=== PATIENT | female | born 1940 | race Caucasian/White ===

== ENCOUNTER 2018-03-03 10:14 | Emergency (ER) | payer MEDICARE ==
[~2018-03-03] VITALS: Ht 170.2 cm; Wt 113.1 kg
[~2018-03-03 10:14] MED LIST: BESIVANCE5 ML; COZAAR100 MG PO; DUREZOL5 ML; ELMIRON100 MG PO; IMITREX20 MG; INDERAL LA80 MG PO; LEVOCETIRIZINE D5 MG PO; OMEPRAZOLE20 MG PO; PROPRANOLOL HCL40 MG PO; SUMATRIPTAN SUC50 MG PO; ULTRAM 50MG50 MG PO; URIBEL CAPSULE1 EACH
[2018-03-03] MEDS ORDERED: AMITRIPTYLINE H25 MG PO (10:47)
[2018-03-03] MEDS ORDERED: CLONIDINE HCL 0.1 MG TAB PO ONE ×2 (11:00→12:30)
--- NOTE | 2018-03-03 11:30 | Diagnostic Imaging Report ---
Fingers Indication: Fall with bruising the third and fourth digits Technique: Three views of the third and fourth digits obtained Comparison: None Findings: There is no evidence of fracture or dislocation. There is mild proximal and distal IP joint narrowing of the third and fourth digits. No significant osteophytosis. No erosive changes. There are degenerative changes of the CMC joint of the first digit. No radio-opaque foreign bodies in the soft tissues. No focal osseous lesions. IMPRESSION: No acute traumatic pathology. Degenerative changes as described above. Signed by: Dr. Kathi Garcias MD on 03/03/2018 11:27 AM
[2018-03-03] MEDS ORDERED: VICTOZA 3-0.6 MG/0.1 SC (12:48)
[2018-03-03 13:23] VITALS: BP 168/87
== END 2018-03-03 13:32 | disposition home or self-care (01) ==
LOC: FSED 10:14
DX: S63.653A Sprain of metacarpophalangeal joint of left middle finger, initial encounter (principal); S63.655A Sprain of metacarpophalangeal joint of left ring finger, initial encounter; W01.0XXA Fall on same level from slipping, tripping and stumbling without subsequent striking against object, initial encounter; Y92.008 Other place in unspecified non-institutional (private) residence as the place of occurrence of the external cause; I10 Essential (primary) hypertension; E11.9 Type 2 diabetes mellitus without complications; K21.9 Gastro-esophageal reflux disease without esophagitis
CPT/HCPCS: 99283

== ENCOUNTER → 2018-04-28 | Outpatient (CLI) | payer MEDICARE ==
[~2018-04-28] MED LIST changes: +AMITRIPTYLINE H25 MG PO; +VICTOZA 3-0.6 MG/0.1 SC
--- NOTE | 2018-04-30 09:55 | Diagnostic Imaging Report ---
PROCEDURE: BONE DXA DUAL ENERGY COMPARISON:None. INDICATIONS:POSTMENOPAUSAL FINDINGS:Evaluation of the left hip and lumbar spine was performed utilizing DEXA Hologic bone densitometer. The study is technically adequate. The patient does not have any known previous non-traumatic fractures or other risk factors. Left hip total bone mineral density: 0.931 gm/cm2, T-score is -0.1, Z-score is 1.9. Lumbar spine total bone mineral density: 1.203 gm/cm2, T-score is 1.4, Z-score is 4.0. Impression: 1. Decreased bone mineral density of the left hip classified as osteopenia, fracture risk increased. 2. Normal bone mineral density of the lumbar spine, fracture risk is not increased. 3. Ten-year fracture risk: Major osteoporotic fracture 10%; hip fracture 1.8% The patient's fracture risk is compared to an age-matched control. Medical evaluation for secondary causes of low bone mineral density may be appropriate. Correlate clinically for the necessity and timing of the next bone mineral density study. National [employer] recommendations: Initial therapy to reduce fracture risk in postmenopausal women with -BMD t-scores below -2.0 by central DXA with no risk factors -BMD t-scores below -1.5 by central CXA with one or more risk factors (first deg relative with hip fracture, prior personal fracture, low body weight, smoking) -A prior vertebral or hip fracture AACE n(Clinical Endocrinology) recommends treating the following: Postmenopausal women who have osteoporosis as diagnosed by fragility fractures or t-score -2.5 or below. Postmenopausal women who have risk factors (including hx of hip fracture, low body weight, smoking, risk of falling, high bone turnover, advancing age) and borderline low BMD T-scores of -1.5 or below Adequate intake of calcium (at least 1200mg/day) and vitamin D (400-800IU/day). Regular weight bearing and muscle-strengthening exercises Avoid smoking and excessive alcohol Nadeem Henning D.O. Dictated by: Nadeem Henning D.O. on 04/30/2018 at 10:04 Electronically approved by: Nadeem Henning D.O. on 04/30/2018 at 10:04
--- NOTE | 2018-05-18 08:44 | Diagnostic Imaging Report ---
#[id number] - [id number] #BILATERAL DIGITAL SCREENING MAMMOGRAM WITH CAD: 04/28/2018 CLINICAL: Routine screening. No prior exams were available for comparison. Current study contains 4 films. There are scattered fibroglandular elements in both breasts. Current study was also evaluated with a Computer Aided Detection (CAD) system. There are benign calcifications in both breasts. No significant masses, calcifications, or other findings are seen in either breast. IMPRESSION: BENIGN There is no mammographic evidence of malignancy. A 1 year screening mammogram is recommended. The patient will be notified by letter of the results. Nadeem oliva/arthur:05/17/2018 11:51:21 Sports Medicine Coordinator: Mary REID)(Abeba), [facility] letter sent: Normal Exam Mammogram BI-RADS: 2 Benign
== END ==
LOC: MAMMO 08:57
PROVIDERS: ATTEND Internal Medicine
DX: Z12.31 Encounter for screening mammogram for malignant neoplasm of breast (principal); N95.9 Unspecified menopausal and perimenopausal disorder
CPT/HCPCS: 77067; 77080

== ENCOUNTER → 2020-12-13 | Outpatient (CLI) | payer MEDICARE ==
[2020-12-13 10:44] LABS: HEMOGLOBIN 12.8 g/dL (12.0-16.0)
== END ==
LOC: DX 10:10
PROVIDERS: ATTEND Internal Medicine
DX: N39.0 Urinary tract infection, site not specified (principal); B96.20 Unspecified Escherichia coli [E. coli] as the cause of diseases classified elsewhere
CPT/HCPCS: 36415; 36569; 71045; 85014; 85049

== ENCOUNTER → 2021-01-08 | Outpatient (CLI) | payer MEDICARE | LOC: DX 14:17 | PROVIDERS: ATTEND Internal Medicine | DX: N39.0 Urinary tract infection, site not specified (principal); B96.20 Unspecified Escherichia coli [E. coli] as the cause of diseases classified elsewhere | CPT/HCPCS: 36569; 71045 ==